=== PATIENT | female | born 1945 | race Caucasian/White ===

== ENCOUNTER 2024-08-22 10:31 | Inpatient (IN) | payer MEDICARE ==
[2024-08-22] MEDS ORDERED: Iopamidol-370 76% 500 ML MDV (1 ML CHARGE) ONE (10:55)
[2024-08-22 11:45] LABS: #Basophils 0.08 10x3/uL (0.0-0.2); %Basophils 0.9 % (0.0-1.0); %Eosinophils 0.3 % (0.0-10.0); %Lymphocytes 13.9 % (21.0-51.0); %Monocytes 6.6 % (0.0-10.0); Hemoglobin 12.2 g/dL (12.0-16.0); Mean Corpuscular Hemoglobin 29.3 pg (27.0-31.0); Mean Corpuscular Volume 88.7 fL (78.0-98.0); Mean Platelet Volume 11.2 fL (7.4-10.4); Platelet Count 251 10x3/uL (130-400); RBC Distribution Width 14.2 % (11.5-14.5); Red Blood Cell (RBC) Count 4.17 mill/uL (4.20-5.40)
[2024-08-22 12:04] LABS: ALT (SGPT) 9 U/L (8-55); AST (SGOT) 14 U/L (5-34); Albumin 3.5 g/dL (3.4-4.8); Alkaline Phosphatase 86 U/L (40-110); Anion Gap 14 mmol/L (10-20); BUN (Urea Nitrogen) 9 mg/dL (9.8-20.1); Calc. Creatinine Clearance 0 mL/min (70-130); Calcium 10.2 mg/dL (7.8-10.44); Carbon Dioxide 18 mmol/L (23-31); Chloride 109 mmol/L (98-107); Estimated GFR 93; Globulin 3.2 g/dL (2.4-3.5); Glucose 94 mg/dL (83-110); Potassium 4.1 mmol/L (3.5-5.1); Protein, Total 6.7 g/dL (5.8-8.1); Sodium 137 mmol/L (136-145)
[2024-08-22 12:09] LABS: Troponin I Less than 0.010 ng/mL (< 0.028)
[2024-08-22 12:30] LABS: PTT 29.2 sec (22.9-36.1); Prothrombin Time 13.3 sec (12.0-14.7)
[2024-08-22] MEDS ORDERED: Ondansetron PF 4 MG/2 ML Vial ONE (12:54)
[2024-08-22] MEDS ORDERED: Morphine 4 MG/ML VIAL ONE (12:54)
[2024-08-22] MEDS ORDERED: Acetaminophen 325 MG TAB PO PRN (15:00)
[2024-08-22] MEDS ORDERED: Ondansetron ODT 4 MG TAB SL PRN (15:00)
[2024-08-22] MEDS ORDERED: Ondansetron PF 4 MG/2 ML Vial IVP PRN (15:00)
[2024-08-22] MEDS ORDERED: Benzonatate 100 MG CAP PO PRN (15:09)
[2024-08-22] MEDS ORDERED: Loperamide HCl 2 MG CAP PO PRN ×2 (15:09)
[2024-08-22] MEDS ORDERED: Moisturizing Cream (Eucerin) 113 GM JAR TOP PRN (15:09)
[2024-08-22] MEDS ORDERED: Loratadine 10 MG TAB PO PRN (15:09)
[2024-08-22] MEDS ORDERED: Artificial Tear Ophth Sol 15 ML BOT EA EYE PRN (15:09)
[2024-08-22] MEDS ORDERED: Bisacodyl 5 MG TAB PO PRN (15:09)
[2024-08-22] MEDS ORDERED: Sodium Chloride 0.65% Nasal 44 ML BOT EA NARE PRN (15:09)
[2024-08-22] MEDS ORDERED: Benzocaine/Menthol 1 LOZ LOZ PO PRN (15:09)
[2024-08-22] MEDS ORDERED: diphenhydrAMINE 50 MG/ML VIAL ONE (15:57)
[2024-08-22] MEDS ORDERED: Famotidine/PF 20 mg/2ml Vial ONE (15:57)
[2024-08-22] MEDS ORDERED: methylPREDNISolone Sod Succ 40 MG VIAL ONE (15:57)
[2024-08-22] MEDS ORDERED: HYDROcodone/Acetaminophen 5/325 mg Tablet ONE (15:57)
[2024-08-22] MEDS: fentaNYL 25 mcg Patch TD SCH (19:20)
[2024-08-22] MEDS: methylPREDNISolone Sod Succ 40 MG VIAL IVP SCH (21:35)
[2024-08-22] MEDS: diphenhydrAMINE 50 MG/ML VIAL IVP SCH (21:35)
[2024-08-22] MEDS: Famotidine/PF 20 mg/2ml Vial SLOW IVP SCH (21:41)
[2024-08-22] MEDS ORDERED: Famotidine/PF 20 mg/2ml Vial SLOW IVP SCH (21:45)
[2024-08-22] MEDS: Famotidine 40 MG (4 mL) VIAL SLOW IVP SCH (22:09)
[2024-08-22 23:46] VITALS: BMI 28.0
[2024-08-23] MEDS ORDERED: traZODone HCl 50 MG TAB PO PRN (08:45)
[2024-08-23] MEDS ORDERED: Enoxaparin 40 MG (0.4 mL) SYRINGE SC SCH (09:00)
[2024-08-23 09:04] VITALS: BMI 28.0
[2024-08-23] MEDS: Pantoprazole DR 40 MG TAB PO SCH (10:23)
[2024-08-23] MEDS: Donepezil HCl 10 MG TAB PO SCH (10:23)
[2024-08-23] MEDS: Levothyroxine Sodium 125 MCG TAB PO SCH (10:23)
[2024-08-23] MEDS: Atorvastatin Calcium 40 MG TAB PO SCH (20:47)
[2024-08-24 04:20] LABS: #Basophils 0.07 10x3/uL (0.0-0.2); #Eosinophils Less than 0.03 10x3/uL (0.0-0.7); %Basophils 0.5 % (0.0-1.0); %Eosinophils 0.1 % (0.0-10.0); %Lymphocytes 16.6 % (21.0-51.0); %Monocytes 9.7 % (0.0-10.0); %Neutrophils 72.8 % (42.0-75.0); Hematocrit 35.8 % (36.0-47.0); Hemoglobin 11.7 g/dL (12.0-16.0); Mean Corpuscular HGB CONC 32.7 g/dL (32.0-36.0); Mean Corpuscular Hemoglobin 28.4 pg (27.0-31.0); Mean Corpuscular Volume 86.9 fL (78.0-98.0); Mean Platelet Volume 11.7 fL (7.4-10.4); Platelet Count 267 10x3/uL (130-400); RBC Distribution Width 14.2 % (11.5-14.5); Red Blood Cell (RBC) Count 4.12 mill/uL (4.20-5.40)
[2024-08-24 04:43] LABS: Anion Gap 12 mmol/L (10-20); BUN (Urea Nitrogen) 21 mg/dL (9.8-20.1); Calc. Creatinine Clearance 88 mL/min (70-130); Calcium 10.9 mg/dL (7.8-10.44); Carbon Dioxide 24 mmol/L (23-31); Chloride 106 mmol/L (98-107); Estimated GFR 90; Glucose 94 mg/dL (83-110); Potassium 4.2 mmol/L (3.5-5.1); Sodium 138 mmol/L (136-145)
[2024-08-24] MEDS: Levothyroxine Sodium 125 MCG TAB PO SCH (05:54)
[2024-08-24] MEDS: HYDROcodone/Acetaminophen 5/325 mg Tablet PO PRN (05:54)
[2024-08-24] MEDS: Pantoprazole DR 40 MG TAB PO SCH (09:27)
[2024-08-24] MEDS: Senokot S 8.6-50 MG TAB PO PRN (09:27)
[2024-08-24] MEDS: Morphine 2 MG/ML VIAL SLOW IVP PRN (13:01)
[2024-08-24 18:32] VITALS: BP 131/76; TEMP 97.9
[2024-08-25] MEDS ORDERED: fentaNYL 25 mcg Patch TD SCH (18:30)
== END 2024-08-24 18:27 | disposition home or self-care (01) | DRG 565 ==
LOC: ERS 10:31 → ERHOLD 12:12 → OBSVTOIN 16:06 → MSONC 19:36
PROVIDERS: ADMIT Family Medicine; ATTEND Internal Medicine
DX: D49.2 Neoplasm of unspecified behavior of bone, soft tissue, and skin (principal); F03.93 Unspecified dementia, unspecified severity, with mood disturbance; F03.94 Unspecified dementia, unspecified severity, with anxiety; F41.9 Anxiety disorder, unspecified; F32.A Depression, unspecified; D36.14 Benign neoplasm of peripheral nerves and autonomic nervous system of thorax; E03.9 Hypothyroidism, unspecified; M81.0 Age-related osteoporosis without current pathological fracture; E78.5 Hyperlipidemia, unspecified; Z85.3 Personal history of malignant neoplasm of breast; Z91.041 Radiographic dye allergy status; Z79.890 Hormone replacement therapy; Z79.899 Other long term (current) drug therapy; Z92.21 Personal history of antineoplastic chemotherapy; Z92.3 Personal history of irradiation; Z87.891 Personal history of nicotine dependence
CPT/HCPCS: 36415; 71045; 71260; 71552; 80048; 80053; 83880; 84484; 85025; 85610; 85730; 86850; 86900; 86901; 93005; 96374; 96375; G0378; J1200; J2272; J2405; J2919; J3490; Q9967

== ENCOUNTER 2024-09-17 08:00 | Outpatient (CLI) | payer MEDICARE | END 2024-09-17 08:01 | disposition home or self-care (01) | LOC: PET 08:00 | PROVIDERS: ATTEND Internal Medicine | DX: C34.91 Malignant neoplasm of unspecified part of right bronchus or lung (principal); N63.31 Unspecified lump in axillary tail of the right breast | CPT/HCPCS: 78815; A9552 ==

== ENCOUNTER 2024-10-08 13:24 | Outpatient (CLI) | payer MEDICARE ==
[~2024-10-08 13:24] MED LIST: Magnevist 469MG/ML 20 ML VIAL ONE
== END 2024-10-08 13:25 | disposition home or self-care (01) ==
LOC: MRI 13:24
DX: D49.2 Neoplasm of unspecified behavior of bone, soft tissue, and skin (principal); R26.89 Other abnormalities of gait and mobility; M47.812 Spondylosis without myelopathy or radiculopathy, cervical region
CPT/HCPCS: 72156

== ENCOUNTER 2024-10-13 16:37 | Inpatient (IN) | payer MEDICARE ==
[2024-10-13 20:49] LABS: #Basophils 0.07 10x3/uL (0.0-0.2); %Basophils 0.8 % (0.0-1.0); %Eosinophils 0.4 % (0.0-10.0); %Lymphocytes 23.3 % (21.0-51.0); %Monocytes 10.4 % (0.0-10.0); %Neutrophils 64.7 % (42.0-75.0); Hematocrit 38.3 % (36.0-47.0); Hemoglobin 12.8 g/dL (12.0-16.0); Mean Corpuscular HGB CONC 33.4 g/dL (32.0-36.0); Mean Corpuscular Hemoglobin 29.5 pg (27.0-31.0); Mean Corpuscular Volume 88.2 fL (78.0-98.0); Mean Platelet Volume 11.2 fL (7.4-10.4); Platelet Count 184 10x3/uL (130-400); RBC Distribution Width 14.6 % (11.5-14.5); Red Blood Cell (RBC) Count 4.34 mill/uL (4.20-5.40)
[2024-10-13 21:07] LABS: ALT (SGPT) Less than 7 U/L (Less than 34); AST (SGOT) 13 U/L (11-34); Albumin 3.6 g/dL (3.1-4.5); Alkaline Phosphatase 69 U/L (40-110); Anion Gap 15 mmol/L (10-20); BUN (Urea Nitrogen) 8 mg/dL (9.8-20.1); Bilirubin, Total 1.7 mg/dL (0.3-1.2); CK (CPK) 20 U/L (29-168); Calc. Creatinine Clearance 0 mL/min (70-130); Calcium 11.4 mg/dL (7.8-10.44); Carbon Dioxide 21 mmol/L (23-31); Chloride 106 mmol/L (98-107); Estimated GFR 91; Globulin 3.1 g/dL (2.4-3.5); Glucose 78 mg/dL (83-110); Lipase 10 U/L (8-78); Magnesium 1.6 mg/dL (1.6-2.6); Potassium 4.2 mmol/L (3.5-5.1); Protein, Total 6.7 g/dL (5.8-8.1); Sodium 138 mmol/L (136-145)
[2024-10-13 21:47] LABS: Troponin I Less than 0.010 ng/mL (< 0.028)
[2024-10-13 23:05] LABS: Bacteria/HPF None Seen HPF (None Seen); Bilirubin Negative (Negative); Blood, Urine Negative (Negative); CAUTI Indications for Culture Alt mental st,lethar; Clarity Turbid (Clear); Glucose, Urine (Dipstick) Normal (Negative); Ketone, Urine 10 mg/dL (Negative); Leukocyte Negative Leu/uL (Negative); Nitrite Negative (Negative); Protein, Urine (Dipstick) Negative (Neg-Trace); RBC/HPF None Seen HPF (0-3); Specific Gravity, Urine 1.014 (1.002-1.036); Squamous Epithelial None Seen HPF (0-3); Urobilinogen Normal mg/dL (Less than 2); WBC/HPF 0-3 HPF (0-3); pH, Urine 7.5 (5.0-9.0)
[2024-10-13 23:06] LABS: Urine Culture Reflex No No
[2024-10-14 04:14] VITALS: BMI 25.0
[2024-10-14] MEDS ORDERED: Ondansetron PF 4 MG/2 ML Vial IVP PRN (04:17)
[2024-10-14] MEDS ORDERED: Acetaminophen 650 MG Suppository PR PRN (04:17)
[2024-10-14] MEDS: HYDROcodone/Acetaminophen 7.5/325 mg Tablet PO PRN (06:04)
[2024-10-14] MEDS: Levothyroxine Sodium 125 MCG TAB PO SCH (06:04)
[2024-10-14] MEDS: Donepezil HCl 10 MG TAB PO SCH (09:00)
[2024-10-14] MEDS: Atorvastatin Calcium 40 MG TAB PO SCH (09:00)
[2024-10-14] MEDS: Pantoprazole 40 MG DR.TAB PO SCH (09:01)
[2024-10-14] MEDS: Famotidine 20 MG TAB PO SCH (09:01)
[2024-10-14] MEDS: Famotidine/PF 20 mg/2ml Vial SLOW IVP SCH (09:01)
[2024-10-14] MEDS: Sodium Chloride 0.9% 1,000 ML IV SCH (12:49)
[2024-10-14] MEDS: FLU (Fluad Triv) TS24-25 (65UP)/MF59C/PF 45 MCG/0.5 ML Syringe IM ONE (12:49)
[2024-10-14 15:17] LABS: Bacteria/HPF 1+ HPF (None Seen); Bilirubin Negative (Negative); Blood, Urine Negative (Negative); CAUTI Indications for Culture Alt mental st,lethar; Clarity Turbid (Clear); Glucose, Urine (Dipstick) Normal (Negative); Ketone, Urine 20 mg/dL (Negative); Leukocyte 75 Leu/uL (Negative); Nitrite Negative (Negative); Protein, Urine (Dipstick) Negative (Neg-Trace); RBC/HPF 0-3 HPF (0-3); Specific Gravity, Urine 1.013 (1.002-1.036); Squamous Epithelial 0-3 HPF (0-3); Urobilinogen Normal mg/dL (Less than 2); WBC/HPF 0-3 HPF (0-3); pH, Urine 7.5 (5.0-9.0)
[2024-10-14 15:18] LABS: Urine Culture Reflex No No
[2024-10-14 16:09] VITALS: BMI 25.0
[2024-10-14] MEDS: Morphine 2 MG/ML VIAL SLOW IVP PRN (17:31)
[2024-10-14] MEDS: Enoxaparin 40 MG (0.4 mL) SYRINGE SC SCH (22:27)
[2024-10-14] MEDS: traZODone HCl 50 MG TAB PO SCH (22:29)
[2024-10-14] MEDS: Mirtazapine 15 MG TAB PO SCH (22:30)
[2024-10-15 06:02] LABS: #Basophils 0.04 10x3/uL (0.0-0.2); %Basophils 0.5 % (0.0-1.0); %Eosinophils 0.6 % (0.0-10.0); %Monocytes 11.9 % (0.0-10.0); %Neutrophils 63.4 % (42.0-75.0); Hematocrit 34.2 % (36.0-47.0); Hemoglobin 11.8 g/dL (12.0-16.0); Mean Corpuscular HGB CONC 34.5 g/dL (32.0-36.0); Mean Corpuscular Hemoglobin 29.6 pg (27.0-31.0); Mean Corpuscular Volume 85.7 fL (78.0-98.0); Mean Platelet Volume 11.5 fL (7.4-10.4); Platelet Count 195 10x3/uL (130-400); RBC Distribution Width 14.5 % (11.5-14.5); Red Blood Cell (RBC) Count 3.99 mill/uL (4.20-5.40)
[2024-10-15 06:19] LABS: Anion Gap 11 mmol/L (10-20); BUN (Urea Nitrogen) 7 mg/dL (9.8-20.1); Calc. Creatinine Clearance 92 mL/min (70-130); Calcium 9.9 mg/dL (7.8-10.44); Carbon Dioxide 20 mmol/L (23-31); Chloride 110 mmol/L (98-107); Estimated GFR 94; Glucose 84 mg/dL (83-110); Potassium 3.4 mmol/L (3.5-5.1); Sodium 138 mmol/L (136-145)
[2024-10-15] MEDS: HYDROcodone/Acetaminophen 7.5/325 mg Tablet PO PRN (11:01)
[2024-10-15] MEDS: fentaNYL 12 mcg Patch TD SCH (11:20)
[2024-10-15] MEDS: fentaNYL 25 mcg Patch TD SCH (12:59)
[2024-10-16 10:36] LABS: Anion Gap 12 mmol/L (10-20); BUN (Urea Nitrogen) 4 mg/dL (9.8-20.1); Calc. Creatinine Clearance 100 mL/min (70-130); Calcium 9.3 mg/dL (7.8-10.44); Carbon Dioxide 18 mmol/L (23-31); Chloride 112 mmol/L (98-107); Estimated GFR 96; Glucose 101 mg/dL (83-110); Sodium 139 mmol/L (136-145)
[2024-10-16 10:39] LABS: #Basophils 0.05 10x3/uL (0.0-0.2); %Basophils 0.6 % (0.0-1.0); %Eosinophils 0.4 % (0.0-10.0); %Lymphocytes 13.2 % (21.0-51.0); %Monocytes 7.4 % (0.0-10.0); %Neutrophils 77.9 % (42.0-75.0); Hematocrit 36.3 % (36.0-47.0); Hemoglobin 12.3 g/dL (12.0-16.0); Mean Corpuscular HGB CONC 33.9 g/dL (32.0-36.0); Mean Corpuscular Hemoglobin 29.2 pg (27.0-31.0); Mean Corpuscular Volume 86.2 fL (78.0-98.0); Platelet Count 173 10x3/uL (130-400); RBC Distribution Width 14.3 % (11.5-14.5); Red Blood Cell (RBC) Count 4.21 mill/uL (4.20-5.40)
[2024-10-16 10:53] LABS: Free T4 (Free Thyroxine) 1.06 ng/dL (0.70-1.48)
[2024-10-16] MEDS: HYDROcodone/Acetaminophen 7.5/325 mg Tablet PO PRN (10:54)
[2024-10-16] MEDS ORDERED: Magnevist 469MG/ML 20 ML VIAL ONE (14:16)
[2024-10-16] MEDS ORDERED: fentaNYL 25 mcg Patch TD SCH (17:00)
[2024-10-16] MEDS: cefTRIAXone\\ROCEPHIN 1 GM in Sodium Chloride 0.9% 100 ML IVPB SCH (17:48)
[2024-10-16] MEDS: Morphine ER 15 MG TAB PO SCH (20:18)
[2024-10-17 07:20] LABS: Anion Gap 14 mmol/L (10-20); BUN (Urea Nitrogen) 8 mg/dL (9.8-20.1); Calc. Creatinine Clearance 84 mL/min (70-130); Calcium 10.1 mg/dL (7.8-10.44); Carbon Dioxide 21 mmol/L (23-31); Chloride 109 mmol/L (98-107); Estimated GFR 92; Glucose 92 mg/dL (83-110); Potassium 3.9 mmol/L (3.5-5.1); Sodium 140 mmol/L (136-145)
[2024-10-17 08:30] LABS: #Basophils 0.06 10x3/uL (0.0-0.2); %Basophils 0.6 % (0.0-1.0); %Lymphocytes 19.3 % (21.0-51.0); %Monocytes 11.5 % (0.0-10.0); Hematocrit 35.2 % (36.0-47.0); Hemoglobin 12.4 g/dL (12.0-16.0); Mean Corpuscular HGB CONC 35.2 g/dL (32.0-36.0); Mean Corpuscular Hemoglobin 29.2 pg (27.0-31.0); Mean Corpuscular Volume 82.8 fL (78.0-98.0); Mean Platelet Volume 12.5 fL (7.4-10.4); Platelet Count 136 10x3/uL (130-400); RBC Distribution Width 14.3 % (11.5-14.5); Red Blood Cell (RBC) Count 4.25 mill/uL (4.20-5.40)
[2024-10-17] MEDS: Naloxone HCl 0.4 mg/ml Vial ONE (15:45)
[2024-10-17] MEDS: Naloxone HCl 0.4 mg/ml Vial IV SCH (15:50)
[2024-10-17] MEDS: Dextrose 5% in Water 1,000 ML IV SCH (17:04)
[2024-10-17] MEDS: Acetaminophen 325 MG TAB PO PRN (21:09)
[2024-10-18] MEDS: Morphine IR 10 MG/5 ML UDCUP PO PRN (06:32)
[2024-10-18 07:19] LABS: #Basophils 0.05 10x3/uL (0.0-0.2); %Basophils 0.4 % (0.0-1.0); %Eosinophils 0.3 % (0.0-10.0); %Lymphocytes 11.8 % (21.0-51.0); %Monocytes 11.9 % (0.0-10.0); %Neutrophils 75.3 % (42.0-75.0); Hematocrit 40.9 % (36.0-47.0); Hemoglobin 13.4 g/dL (12.0-16.0); Mean Corpuscular HGB CONC 32.8 g/dL (32.0-36.0); Mean Corpuscular Volume 88.5 fL (78.0-98.0); Mean Platelet Volume 11.5 fL (7.4-10.4); Platelet Count 177 10x3/uL (130-400); RBC Distribution Width 14.6 % (11.5-14.5); Red Blood Cell (RBC) Count 4.62 mill/uL (4.20-5.40)
[2024-10-18 07:54] LABS: Anion Gap 16 mmol/L (10-20); BUN (Urea Nitrogen) 5 mg/dL (9.8-20.1); Calc. Creatinine Clearance 83 mL/min (70-130); Calcium 10.6 mg/dL (7.8-10.44); Carbon Dioxide 22 mmol/L (23-31); Chloride 106 mmol/L (98-107); Estimated GFR 92; Glucose 94 mg/dL (83-110); Potassium 3.5 mmol/L (3.5-5.1); Sodium 140 mmol/L (136-145)
[2024-10-18] MEDS: fentaNYL 25 mcg Patch TD SCH (11:00)
[2024-10-18] MEDS: Dextrose 5% in Water 1,000 ML IV SCH (15:30)
[2024-10-18 21:55] VITALS: BP 103/65
[2024-10-18 23:13] VITALS: TEMP 99
== END 2024-10-19 00:05 | disposition short-term general hospital (02) | DRG 543 ==
LOC: ERS 16:37 → T4-A 10-14 03:20 → OBSVTOIN 10-15 17:07
PROVIDERS: ADMIT Student in an Organized Health Care Education/Training Program; ATTEND Family Medicine
DX: C47.1 Malignant neoplasm of peripheral nerves of upper limb, including shoulder (principal); N39.0 Urinary tract infection, site not specified; E83.52 Hypercalcemia; E86.0 Dehydration; I10 Essential (primary) hypertension; Z66 Do not resuscitate; E03.9 Hypothyroidism, unspecified; R53.1 Weakness; E78.5 Hyperlipidemia, unspecified; Z79.899 Other long term (current) drug therapy; F03.90 Unspecified dementia, unspecified severity, without behavioral disturbance, psychotic disturbance, mood disturbance, and anxiety; Z87.891 Personal history of nicotine dependence; Z90.13 Acquired absence of bilateral breasts and nipples; Z51.5 Encounter for palliative care
CPT/HCPCS: 36415; 36416; 51701; 70450; 70553; 71045; 76376; 80048; 80053; 81001; 82550; 83690; 83735; 84439; 84443; 84481; 84484; 85025; 87428; 90653; 93005; 96360; 96361; 96372; 96374; 96375; 96376; G0378; J0696; J1650; J2272; J2310; J3490; J7030; J7070